=== PATIENT | male | born 1955 | race Caucasian/White ===

== ENCOUNTER → 2019-04-08 | Outpatient (CLI) | payer MEDICARE ==
[2019-04-08 13:27] LABS: BASO # 0.1 10^3/uL (0.0-0.2); BASO % 0.7 % (0.0-1.0); EOS # 0.3 10^3/uL (0.0-0.5); EOS % 4.6 % (0.0-3.0); HEMATOCRIT 43.7 % (42.0-52.0); HEMOGLOBIN 14.2 g/dl (13.5-17.5); LYMPH # 1.1 10^3/uL (1.5-5.0); LYMPH % 14.4 % (24.0-44.0); MEAN CORPUSCULAR HEMOGLOBIN 29.3 pg (27.0-33.0); MEAN CORPUSCULAR HGB CONC 32.5 g/dl (32.0-36.5); MEAN CORPUSCULAR VOLUME 90.1 fl (80.0-96.0); MONO # 0.4 10^3/uL (0.0-0.8); MONO % 5.8 % (0.0-5.0); NEUTROPHILS # 5.5 10^3/uL (1.5-8.5); NEUTROPHILS % 73.8 % (36.0-66.0); PLATELET COUNT, AUTOMATED 255 10^3/uL (150-450); RED BLOOD COUNT 4.85 10^6/uL (4.30-6.10); WHITE BLOOD COUNT 7.4 10^3/uL (4.0-10.0)
[2019-04-08 13:33] LABS: APPEARANCE, URINE CLEAR (CLEAR); BACTERIA, URINE AUTO NEGATIVE (NEGATIVE); BILIRUBIN, URINE AUTO NEGATIVE (NEGATIVE); BLOOD, URINE BLOOD NEGATIVE (NEGATIVE); COLOR, URINE YELLOW (YELLOW); GLUCOSE, URINE (UA) AUTO NEGATIVE (NEGATIVE); KETONE, URINE AUTO NEGATIVE (NEGATIVE); LEUKOCYTE ESTERASE, URINE AUTO NEGATIVE (NEGATIVE); MUCUS, URINE SMALL (NEGATIVE); NITRITE, URINE AUTO NEGATIVE (NEGATIVE); PROTEIN, URINE AUTO NEGATIVE (NEGATIVE); RBC, URINE AUTO 3 /HPF (0-3); SPECIFIC GRAVITY URINE AUTO 1.026 (1.002-1.035); SQUAMOUS EPITHELIAL CELL UR AU 0 /HPF (0-6); UROBILINOGEN, URINE AUTO 0.2 mg/dL (0.0-2.0); WBC, URINE AUTO 1 /HPF (0-3)
[2019-04-08 13:41] LABS: HEMOGLOBIN A1c 6.1 %
[2019-04-08 13:55] LABS: ALBUMIN 3.4 GM/DL (3.2-5.2); ALT/SGPT 26 U/L (12-78); BILIRUBIN,TOTAL 0.4 MG/DL (0.2-1.0); BLOOD UREA NITROGEN 27 MG/DL (7-18); CALCIUM LEVEL 9.1 MG/DL (8.8-10.2); CARBON DIOXIDE LEVEL 30 MEQ/L (21-32); CHLORIDE LEVEL 104 MEQ/L (98-107); CHOLESTEROL LEVEL 161 MG/DL (<200); CHOLESTEROL RISK RATIO 4.735 (<5); GLOMERULAR FILTRATION RATE > 60.0 (>49); GLUCOSE, FASTING 115 MG/DL (70-100); HDL CHOLESTEROL 34 MG/DL (>40); LDL CHOLESTEROL 101 MG/DL (<100); NON-HDL-C 127 MG/DL; POTASSIUM SERUM 4.7 MEQ/L (3.5-5.1); SODIUM LEVEL 139 MEQ/L (136-145); TOTAL PROTEIN 6.9 GM/DL (6.4-8.2); TRIGLYCERIDES LEVEL 130 MG/DL (<150)
[2019-04-08 14:04] LABS: MALB URINE SIEMENS 7.6 MG/L; MAU/CREAT RATIO 3.6 MCG/MG (0.0-30.0)
== END ==
LOC: M LAB 11:54
PROVIDERS: ATTEND Family Medicine
DX: R73.03 Prediabetes (principal); E78.00 Pure hypercholesterolemia, unspecified

== ENCOUNTER → 2019-05-09 | Outpatient (CLI) | payer MEDICARE ==
--- NOTE | 2019-05-09 08:00 | REPVR ---
PROCEDURE INFORMATION: Exam: CT Lumbar Spine Without Contrast Exam date and time: 05/09/2019 7:07 AM Age: 63 years old Clinical indication: Abnormal findings; Abnormal xray or scan of thoracolumbar spine; Additional info: Lumbar radiculopathy TECHNIQUE: Imaging protocol: Computed tomography images of the lumbar spine without contrast. Radiation optimization: All CT scans at this facility use at least one of these dose optimization techniques: automated exposure control; mA and/or kV adjustment per patient size (includes targeted exams where dose is matched to clinical indication); or iterative reconstruction. COMPARISON: No relevant prior studies available. FINDINGS: Vertebrae: There is a questionable [id number] compression fracture of the anterior T12 vertebral body with anterior height loss of approximately 20-25%. No retropulsed intraspinal bone fragments or disc protrusion, however. Mild, less than 10% retrolisthesis of L1 upon L2 with significant bony neuroforaminal stenosis bilaterally at L1/L2, especially severe on the left. Moderately severe central spinal canal stenosis at L4/L5, secondary to posterior vertebral body endplate osteophytosis, circumferential posterior disc bulging, bilateral posterior facet joint arthropathy and ligamentum flavum inbuckling. Severe right neuroforaminal stenosis at L5/S1, secondary to minimal retrolisthesis of L5 upon S1 and posterior right facet joint degenerative arthropathy. Recommend clinical correlation for a right L5 radiculopathy. Discs/Spinal canal/Neural foramina: See Vertebrae Finding. Soft tissues: Normal prevertebral and posterior paraspinal soft tissues. IMPRESSION: 1. There is a questionable mild [id number] compression fracture of the anterior T12 vertebral body with anterior height loss of approximately 20-25%. No retropulsed intraspinal bone fragments or disc protrusion, however. 2. Mild, less than 10% retrolisthesis of L1 upon L2 with significant bony neuroforaminal stenosis bilaterally at L1/L2, especially severe on the left. 3. Moderately severe central spinal canal stenosis at L4/L5, secondary to posterior vertebral body endplate osteophytosis, circumferential posterior disc bulging, bilateral posterior facet joint arthropathy and ligamentum flavum inbuckling. 4. Severe right neuroforaminal stenosis at L5/S1, secondary to minimal retrolisthesis of L5 upon S1 and posterior right facet joint degenerative arthropathy. Recommend clinical correlation for a right L5 radiculopathy. Electronically signed by: Bradford Hays On 05/09/2019 07:59:40 AM
== END ==
LOC: M RAD 07:00
PROVIDERS: ATTEND Pain Medicine Interventional Pain Medicine
DX: M54.16 Radiculopathy, lumbar region (principal); M48.061 Spinal stenosis, lumbar region without neurogenic claudication; M51.26 Other intervertebral disc displacement, lumbar region

== ENCOUNTER → 2020-04-02 | Outpatient (CLI) | payer MEDICARE ==
[2020-04-02 13:19] LABS: BASO # 0.1 10^3/uL (0.0-0.2); BASO % 0.8 % (0.0-1.0); EOS # 0.2 10^3/uL (0.0-0.5); EOS % 2.9 % (0.0-3.0); HEMATOCRIT 43.2 % (42.0-52.0); HEMOGLOBIN 13.7 g/dl (13.5-17.5); LYMPH % 15.6 % (24.0-44.0); MEAN CORPUSCULAR HEMOGLOBIN 29.1 pg (27.0-33.0); MEAN CORPUSCULAR HGB CONC 31.7 g/dl (32.0-36.5); MEAN CORPUSCULAR VOLUME 91.7 fl (80.0-96.0); MONO # 0.4 10^3/uL (0.0-0.8); MONO % 5.9 % (0.0-5.0); NEUTROPHILS % 74.3 % (36.0-66.0); PLATELET COUNT, AUTOMATED 267 10^3/uL (150-450); RED BLOOD COUNT 4.71 10^6/uL (4.30-6.10); WHITE BLOOD COUNT 6.7 10^3/uL (4.0-10.0)
[2020-04-02 13:54] LABS: ALBUMIN 3.5 GM/DL (3.2-5.2); ALT/SGPT 25 U/L (12-78); BILIRUBIN,TOTAL 0.4 MG/DL (0.2-1.0); BLOOD UREA NITROGEN 31 MG/DL (7-18); CALCIUM LEVEL 9.1 MG/DL (8.8-10.2); CARBON DIOXIDE LEVEL 28 MEQ/L (21-32); CHLORIDE LEVEL 105 MEQ/L (98-107); CHOLESTEROL LEVEL 122 MG/DL (<200); CHOLESTEROL RISK RATIO 3.297 (<5); CREATININE FOR GFR 1.28 MG/DL (0.70-1.30); GLOMERULAR FILTRATION RATE > 60.0 (>49); GLUCOSE, FASTING 113 MG/DL (70-100); HDL CHOLESTEROL 37 MG/DL (>40); LDL CHOLESTEROL 68 MG/DL (<100); NON-HDL-C 85 MG/DL; POTASSIUM SERUM 4.7 MEQ/L (3.5-5.1); SODIUM LEVEL 138 MEQ/L (136-145); TOTAL PROTEIN 6.7 GM/DL (6.4-8.2); TRIGLYCERIDES LEVEL 87 MG/DL (<150)
[2020-04-02 15:16] LABS: HEMOGLOBIN A1c 5.7 %
[2020-04-02 15:16] LABS: MALB URINE SIEMENS 5.7 MG/L; MAU/CREAT RATIO 3.3 MCG/MG (0.0-30.0)
== END ==
LOC: M LAB 12:27
PROVIDERS: ATTEND Family Medicine
DX: E11.69 Type 2 diabetes mellitus with other specified complication (principal); E66.9 Obesity, unspecified

== ENCOUNTER 2020-10-28 14:23 | Emergency (ER) | payer MEDICARE ==
[~2020-10-28] VITALS: Ht 165.1 cm; Wt 92.3 kg
[2020-10-28] MEDS ORDERED: ASPI1CHW3 PO (14:30)
[2020-10-28] MEDS ORDERED: OMEP40CA4 PO (14:30)
[2020-10-28] MEDS ORDERED: ATOR1TAB21 PO (14:30)
[2020-10-28] MEDS ORDERED: CARV6.25 PO (14:30)
[2020-10-28] MEDS ORDERED: ONDANSETRON 4MG/2ML VIAL IV ONE (16:45)
[2020-10-28] MEDS ORDERED: MORPHINE 4 MG/ML 1ML VIAL/SYRINGE (J2270) IV ONE (16:45)
[2020-10-28] MEDS ORDERED: NS 1,000 ML IV ONE (16:45)
[2020-10-28 17:26] LABS: BASO % 0.5 % (0.0-1.0); EOS # 0.2 10^3/uL (0.0-0.5); HEMATOCRIT 46.8 % (42.0-52.0); HEMOGLOBIN 15.2 g/dl (13.5-17.5); LYMPH # 1.3 10^3/uL (1.5-5.0); LYMPH % 15.4 % (24.0-44.0); MEAN CORPUSCULAR HEMOGLOBIN 29.4 pg (27.0-33.0); MEAN CORPUSCULAR HGB CONC 32.5 g/dl (32.0-36.5); MEAN CORPUSCULAR VOLUME 90.5 fl (80.0-96.0); MONO # 0.5 10^3/uL (0.0-0.8); MONO % 6.2 % (2.0-8.0); NEUTROPHILS % 74.2 % (36.0-66.0); PLATELET COUNT, AUTOMATED 278 10^3/uL (150-450); RED BLOOD COUNT 5.17 10^6/uL (4.30-6.10); WHITE BLOOD COUNT 8.1 10^3/uL (4.0-10.0)
[2020-10-28 17:46] LABS: ALBUMIN 3.8 GM/DL (3.2-5.2); BILIRUBIN,DIRECT 0.1 MG/DL (0.0-0.2); BILIRUBIN,TOTAL 0.5 MG/DL (0.2-1.0); TOTAL PROTEIN 7.8 GM/DL (6.4-8.2)
[2020-10-28] MEDS ORDERED: ISOVUE-370 76% 100ML VIAL As Ordered ONE (17:56)
--- NOTE | 2020-10-28 19:15 | REP ---
INDICATION: LLQ abd pain. COMPARISON: None. TECHNIQUE: Abdomen pelvis CT with IV contrast, without bowel contrast FINDINGS: The visualized lung piper are unremarkable. The hepatic parenchyma is slightly hypodense suggestive of hepato steatosis but otherwise unremarkable. The gallbladder, pancreas and spleen are unremarkable. The adrenals are unremarkable. There is a Bosniak type 1 right renal 4.1 cm cortical cyst at the lower pole. The right kidney is otherwise unremarkable. The left kidney is unremarkable. The abdominal aorta is unremarkable except for occasional calcified atheroma. There is no periaortic adenopathy or mass. There is wall thickening of the descending colon and sigmoid colon, nonspecific, but could represent infectious versus inflammatory colitis in the appropriate clinical setting. There is no ascites. There is no pneumoperitoneum. There is a small calcification along the inferior margin of the distal sigmoid colon, possibly a calcified colonic appendage. There is no CT evidence of acute appendagitis. This calcification may be residua of previous appendagitis. Pelvis: The bladder is unremarkable. There is no ascites or adenopathy. IMPRESSION: There is wall thickening of the descending colon and sigmoid colon, nonspecific but could represent infectious versus inflammatory colitis in the appropriate clinical setting. There is a small calcification along the inferior margin of the distal sigmoid colon, possibly residua of previous appendagitis. There is no acute appendagitis. There is no ascites. No pneumoperitoneum. There are occasional sigmoid colon diverticula. There is no CT evidence of diverticulitis. There is a right renal cyst. <Electronically signed by Magan Zaidi > 10/28/20 191
[2020-10-28] MEDS ORDERED: HYDR-3713 PO (19:54)
[2020-10-28 20:05] VITALS: BP 166/76
== END 2020-10-28 20:07 | disposition home or self-care (01) ==
LOC: M ED 14:23
DX: L85.9 Epidermal thickening, unspecified (principal); R10.9 Unspecified abdominal pain; I10 Essential (primary) hypertension; I25.2 Old myocardial infarction; K21.9 Gastro-esophageal reflux disease without esophagitis; N28.1 Cyst of kidney, acquired; Z79.82 Long term (current) use of aspirin; Z79.899 Other long term (current) drug therapy
CPT/HCPCS: 74177; 80047; 80076; 81001; 83690; 85025; 96361; 96374; 96375; 99284; J2270; J2405; Q9967

== ENCOUNTER → 2021-02-12 | Outpatient (CLI) | payer MEDICARE ==
[~2021-02-12] MED LIST: ASPI1CHW3 PO; ATOR1TAB21 PO; CARV6.25 PO; HYDR-3713 PO; OMEP40CA4 PO
[2021-02-12 09:37] LABS: BASO % 0.7 % (0.0-1.0); EOS # 0.3 10^3/uL (0.0-0.5); EOS % 4.8 % (0.0-3.0); HEMATOCRIT 44.8 % (42.0-52.0); HEMOGLOBIN 14.7 g/dl (13.5-17.5); LYMPH # 0.9 10^3/uL (1.5-5.0); LYMPH % 15.3 % (24.0-44.0); MEAN CORPUSCULAR HEMOGLOBIN 29.4 pg (27.0-33.0); MEAN CORPUSCULAR HGB CONC 32.8 g/dl (32.0-36.5); MEAN CORPUSCULAR VOLUME 89.6 fl (80.0-96.0); MONO # 0.3 10^3/uL (0.0-0.8); NEUTROPHILS # 4.1 10^3/uL (1.5-8.5); NEUTROPHILS % 72.5 % (36.0-66.0); PLATELET COUNT, AUTOMATED 263 10^3/uL (150-450); WHITE BLOOD COUNT 5.7 10^3/uL (4.0-10.0)
[2021-02-12 10:04] LABS: ALBUMIN 3.3 GM/DL (3.2-5.2); ALT/SGPT 33 U/L (12-78); BILIRUBIN,TOTAL 0.3 MG/DL (0.2-1.0); BLOOD UREA NITROGEN 23 MG/DL (7-18); CALCIUM LEVEL 9.6 MG/DL (8.8-10.2); CARBON DIOXIDE LEVEL 30 MEQ/L (21-32); CHLORIDE LEVEL 106 MEQ/L (98-107); CHOLESTEROL LEVEL 175 MG/DL (<200); CHOLESTEROL RISK RATIO 4.729 (<5); CREATININE FOR GFR 1.22 MG/DL (0.70-1.30); GLOMERULAR FILTRATION RATE > 60.0 (>49); GLUCOSE, FASTING 117 MG/DL (70-100); HDL CHOLESTEROL 37 MG/DL (>40); LDL CHOLESTEROL 104 MG/DL (<100); NON-HDL-C 138 MG/DL; POTASSIUM SERUM 4.5 MEQ/L (3.5-5.1); SODIUM LEVEL 140 MEQ/L (136-145); TRIGLYCERIDES LEVEL 168 MG/DL (<150)
[2021-02-12 10:21] LABS: HEMOGLOBIN A1c 5.9 %
== END ==
LOC: M LAB 08:59
PROVIDERS: ATTEND Nurse Practitioner
DX: R73.01 Impaired fasting glucose (principal); I10 Essential (primary) hypertension

== ENCOUNTER → 2021-02-20 | Outpatient (CLI) | payer MEDICARE ==
[2021-02-20 09:24] LABS: ALBUMIN 3.2 GM/DL (3.2-5.2); BILIRUBIN,DIRECT 0.1 MG/DL (0.0-0.2); BILIRUBIN,TOTAL 0.4 MG/DL (0.2-1.0); TOTAL PROTEIN 6.3 GM/DL (6.4-8.2)
[2021-02-22 04:07] LABS: Alkaline Phosphatase Iso-Bone 21 % (12-68); Alkaline Phosphatase Iso-Intes 9 % (0-18); Alkaline Phosphatase Iso-Liver 70 % (13-88); TOTAL ALK PHOS 117 IU/L (44-121)
== END ==
LOC: M LAB 08:13
PROVIDERS: ATTEND Nurse Practitioner
DX: R74.8 Abnormal levels of other serum enzymes (principal)

== ENCOUNTER → 2023-01-09 | Outpatient (CLI) | payer MEDICARE ==
[~2023-01-09] MED LIST changes: +ASPI-655 PO; -ASPI1CHW3 PO
[2023-01-09 09:30] LABS: BASO # 0.1 10^3/uL (0.0-0.2); EOS # 0.3 10^3/uL (0.0-0.5); HEMATOCRIT 39.8 % (42.0-52.0); HEMOGLOBIN 13.5 g/dl (13.5-17.5); LYMPH # 0.8 10^3/uL (1.5-5.0); LYMPH % 15.8 % (24.0-44.0); MEAN CORPUSCULAR HEMOGLOBIN 30.8 pg (27.0-33.0); MEAN CORPUSCULAR HGB CONC 33.9 g/dl (32.0-36.5); MEAN CORPUSCULAR VOLUME 90.7 fl (80.0-96.0); MONO # 0.3 10^3/uL (0.0-0.8); MONO % 5.8 % (2.0-8.0); NEUTROPHILS # 3.8 10^3/uL (1.5-8.5); PLATELET COUNT, AUTOMATED 218 10^3/uL (150-450); RED BLOOD COUNT 4.39 10^6/uL (4.30-6.10); WHITE BLOOD COUNT 5.2 10^3/uL (4.0-10.0)
[2023-01-13 10:07] LABS: BLOOD UREA NITROGEN 21 MG/DL (8-27); CALCIUM LEVEL 9.1 MG/DL (8.7-10.3); CARBON DIOXIDE LEVEL 20 mmol/L (20-29); CHLORIDE LEVEL 105 mmol/L (96-106); CREATININE FOR GFR 1.06 MG/DL (0.57-1.00); GLOMERULAR FILTRATION RATE > 60.0 (>59); POTASSIUM SERUM 4.7 mmol/L (3.5-5.2); SODIUM LEVEL 140 mmol/L (134-144)
[2023-01-13 10:08] LABS: ALKALINE PHOSPHATASE 122 IU/L (44-121); ALT/SGPT 20 IU/L (0-32); AST/SGOT 22 IU/L (0-40); BILIRUBIN,TOTAL 0.4 MG/DL (0.0-1.2); CHOLESTEROL LEVEL 141 MG/DL (100-199); CHOLESTEROL RISK RATIO 4.028 (<5); HDL CHOLESTEROL 35 MG/DL (>40); LDL CHOLESTEROL 86.2 MG/DL (<100); NON-HDL-C 106 MG/DL; TRIGLYCERIDES LEVEL 99 MG/DL (0-149)
[2023-01-13 10:09] LABS: ALBUMIN 4.1 G/DL (3.9-4.9); TOTAL PROTEIN 6.4 G/DL (6.0-8.5)
[2023-01-13 10:10] LABS: FREE T4 1.12 NG/DL (0.82-1.77)
[2023-01-13 10:12] LABS: GLUCOSE, FASTING 123 MG/DL (70-99)
== END ==
LOC: M LAB 08:49
PROVIDERS: ATTEND Nurse Practitioner Family
DX: R73.03 Prediabetes (principal); E78.2 Mixed hyperlipidemia; I10 Essential (primary) hypertension

== ENCOUNTER → 2024-07-04 | Outpatient (CLI) | payer MEDICARE ==
[2024-07-04 12:10] LABS: BASO % 0.5 % (0.0-1.0); EOS # 0.3 10^3/uL (0.0-0.5); EOS % 5.3 % (0.0-3.0); HEMATOCRIT 41.7 % (42.0-52.0); HEMOGLOBIN 14.1 g/dl (13.5-17.5); MEAN CORPUSCULAR HEMOGLOBIN 30.7 pg (27.0-33.0); MEAN CORPUSCULAR HGB CONC 33.8 g/dl (32.0-36.5); MEAN CORPUSCULAR VOLUME 90.7 fl (80.0-96.0); MONO # 0.4 10^3/uL (0.0-0.8); MONO % 5.8 % (2.0-8.0); NEUTROPHILS # 4.3 10^3/uL (1.5-8.5); NEUTROPHILS % 71.6 % (36.0-66.0); PLATELET COUNT, AUTOMATED 218 10^3/uL (150-450)
[2024-07-04 12:27] LABS: HEMOGLOBIN A1c 5.4 % (4.0-6.0)
[2024-07-04 12:46] LABS: ALBUMIN 3.2 G/DL (3.2-5.2); BILIRUBIN,TOTAL 0.4 MG/DL (0.3-1.2); CALCIUM LEVEL 8.8 MG/DL (8.3-10.6); CHOLESTEROL RISK RATIO 3.69 (<5); CREATININE FOR GFR 1.04 MG/DL (0.70-1.30); GLOMERULAR FILTRATION RATE 78.2 (>49); HDL CHOLESTEROL 33.8 MG/DL (>40); LDL CHOLESTEROL 74.2 MG/DL (<100); NON-HDL-C 91.2 MG/DL; POTASSIUM SERUM 4.4 MMOL/L (3.5-5.1); TOTAL PROTEIN 6.2 G/DL (5.7-8.2)
== END ==
LOC: M LAB 10:53
PROVIDERS: ATTEND Nurse Practitioner Family
DX: R73.03 Prediabetes (principal); E78.00 Pure hypercholesterolemia, unspecified